=== PATIENT | male | born 1955 | race Caucasian/White ===

== ENCOUNTER 2018-02-06 16:15 | Inpatient (IN) | payer OTHER ==
[2018-02-06 16:43] LABS: Absolute Lymphocytes (CBC) 1.6 K/uL (0.7-4.9); Absolute Monocytes 0.6 K/uL (0.1-1.3); Absolute Neutrophil 6.2 K/uL (1.8-8.0); Basophils % 0.8 % (0-1.3); Eosinophils % 4.9 % (0-4.4); Lymphocytes % 17.9 % (15.3-44.8); MCH 28.3 pg (27.0-35.0); MCV 85.2 fL (80-100); MPV 9.4 fL (7.6-11.3); Monocytes % 6.7 % (3.3-12.3)
[2018-02-06] MEDS ORDERED: HEPARIN 5000 UNIT/ML 1 ML VIAL ONE (16:43)
[2018-02-06] MEDS ORDERED: ASPIRIN 81 MG CHEWABLE TABLET ONE (16:43)
[2018-02-06] MEDS ORDERED: NA CHLORIDE 0.9% 1,000 ML ONE (16:44)
[2018-02-06] MEDS ORDERED: HEPARIN/D5W 25,000 UNIT/500 ML BAG IV ONE (16:44)
[2018-02-06 16:46] LABS: Protime INR 1.03
--- NOTE | 2018-02-06 17:16 | RAD REPORT ---
EXAM DESCRIPTION: Norma Single View02/06/2018 5:06 pm CLINICAL HISTORY: Chest pain COMPARISON: 2011 FINDINGS: The lungs appear clear of acute infiltrate. The heart is normal size IMPRESSION: No acute abnormalities displayed
--- NOTE | 2018-02-06 17:24 | EDPHYS ---
Physician Documentation [facility] Name: Giorgi Al Age: 62 yrs Sex: Male : 1955 Arrival Date: 02/06/2018 Time: 16:[address] Private MD: ED Physician Eduardo Morocho HPI: 02/06 16:33 This 62 yrs old Male presents to ER via Unassigned with complaints of Chest peewee Pain. 16:33 The patient or guardian reports chest pain that is located primarily in the substernal peewee area. Onset: 2 day(s) ago. The pain does not radiate. Associated signs and symptoms: The patient has no apparent associated signs or symptoms. Modifying factors: The symptoms are alleviated by nothing. the symptoms are aggravated by nothing. Severity of pain: At its worst the pain was mild moderate in the emergency department the pain is unchanged. The patient has not experienced similar symptoms in the past. Historical: - Allergies: 16:42 No Known Allergies; ss - PMHx: 16:42 Hypertension; Hypothyroidism; Diabetes - IDDM; Myocardial infarction; ss - PSHx: 16:42 Knee surgery; ss - Immunization history:: Adult Immunizations up to date. - Social history:: Smoking status: Patient/guardian denies using tobacco. - Family history:: not pertinent. - Ebola Screening: : Patient denies exposure to infectious person Patient denies travel to an Ebola-affected area in the 21 days before illness onset. ROS: 16:33 Constitutional: Negative for fever, chills, and weight loss, Eyes: Negative for injury, peewee pain, redness, and discharge, ENT: Negative for injury, pain, and discharge, Neck: Negative for injury, pain, and swelling, Respiratory: Negative for shortness of breath, cough, wheezing, and pleuritic chest pain, Abdomen/GI: Negative for abdominal pain, nausea, vomiting, diarrhea, and constipation, Back: Negative for injury and pain, : Negative for injury, bleeding, discharge, and swelling, MS/Extremity: Negative for injury and deformity, Skin: Negative for injury, rash, and discoloration, Neuro: Negative for headache, weakness, numbness, tingling, and seizure, Psych: Negative for depression, anxiety, suicide ideation, homicidal ideation, and hallucinations, Allergy/Immunology: Negative for hives, rash, and allergies, Endocrine: Negative for neck swelling, polydipsia, polyuria, polyphagia, and marked weight changes, Hematologic/Lymphatic: Negative for swollen nodes, abnormal bleeding, and unusual bruising. 16:33 Cardiovascular: Positive for chest pain, of the chest. Exam: 16:33 Constitutional: This is a well developed, well nourished patient who is awake, alert, peewee and in no acute distress. Head/Face: Normocephalic, atraumatic. Eyes: Pupils equal round and reactive to light, extra-ocular motions intact. Lids and lashes normal. Conjunctiva and sclera are non-icteric and not injected. Cornea within normal limits. Periorbital areas with no swelling, redness, or edema. ENT: Nares patent. No nasal discharge, no septal abnormalities noted. Tympanic membranes are normal and external auditory canals are clear. Oropharynx with no redness, swelling, or masses, exudates, or evidence of obstruction, uvula midline. Mucous membranes moist. Neck: Trachea midline, no thyromegaly or masses palpated, and no cervical lymphadenopathy. Supple, full range of motion without nuchal rigidity, or vertebral point tenderness. No Meningismus. Chest/axilla: Normal chest wall appearance and motion. Nontender with no deformity. No lesions are appreciated. Cardiovascular: Regular rate and rhythm with a normal S1 and S2. No gallops, murmurs, or rubs. Normal PMI, no JVD. No pulse deficits. Respiratory: Lungs have equal breath sounds bilaterally, clear to auscultation and percussion. No rales, rhonchi or wheezes noted. No increased work of breathing, no retractions or nasal flaring. Abdomen/GI: Soft, non-tender, with normal bowel sounds. No distension or tympany. No guarding or rebound. No evidence of tenderness throughout. Back: No spinal tenderness. No costovertebral tenderness. Full range of motion. Male : Normal genitalia with no discharge or lesions. Skin: Warm, dry with normal turgor. Normal color with no rashes, no lesions, and no evidence of cellulitis. MS/ Extremity: Pulses equal, no cyanosis. Neurovascular intact. Full, normal range of motion. Neuro: Awake and alert, GCS 15, oriented to person, place, time, and situation. Cranial nerves II-XII grossly intact. Motor strength 5/5 in all extremities. Sensory grossly intact. Cerebellar exam normal. Normal gait. Psych: Awake, alert, with orientation to person, place and time. Behavior, mood, and affect are within normal limits. Vital Signs: 16:31 Weight 120.2 kg (R); tw2 16:31 BP 178 / 101; Pulse 122; Resp 24; Pulse Ox 99% on R/A; tw2 16:42 Pulse 114; Resp 18; Height 6 ft. 1 in. (185.42 cm); Pain 0/10; ss 17:30 BP 178 / 84; Pulse 84; Resp 17; Pulse Ox 98% on R/A; tw2 18:24 BP 160 / 83; Pulse 92; Resp 18; Pulse Ox 98% on R/A; tw2 19:07 BP 155 / 90; Pulse 66; Resp 16; Pulse Ox 98% on R/A; Pain 0/10; aa1 19:46 BP 116 / 52; Pulse 58; Resp 16; Temp 98.3; Pulse Ox 97% on R/A; Pain 0/10; aa1 16:42 Body Mass Index 34.96 (120.20 kg, 185.42 cm) ss MDM: 16:19 Patient medically screened. [facility] 16:34 Data reviewed: vital signs, nurses notes, lab test result(s), EKG, radiologic studies, peewee plain films. 02/06 16:27 Order name: Basic Metabolic Panel; Complete Time: 18:13 [facility] 02/06 16:27 Order name: CBC with Diff; Complete Time: 17:04 [facility] 02/06 16:27 Order name: LFT's; Complete Time: 18:13 [facility] 02/06 16:27 Order name: Magnesium; Complete Time: 18:13 [facility] 02/06 16:27 Order name: NT PRO-BNP; Complete Time: 18:13 [facility] 02/06 16:27 Order name: PT-INR; Complete Time: 17:04 [facility] 02/06 16:27 Order name: Troponin (emerg Dept Use Only); Complete Time: 18:13 [facility] 02/06 16:27 Order name: XRAY Chest (1 view); Complete Time: 17:21 [facility] 02/06 16:27 Order name: Lipase; Complete Time: 18:13 [facility] 02/06 16:36 Order name: TSH; Complete Time: 18:13 [facility] 02/06 18:22 Order name: CT Stone Protocol [facility] 02/06 18:39 Order name: Urine Dipstick--Ancillary (enter results) 02/06 18:53 Order name: Hemoglobin A1c; Complete Time: 19:13 [facility] 02/06 19:07 Order name: T4 Free; Complete Time: 19:13 [facility] 02/06 16:27 Order name: EKG; Complete Time: 16:28 [facility] 02/06 16:27 Order name: Cardiac monitoring; Complete Time: 17:56 [facility] 02/06 17:26 Order name: CONS Physician Consult [facility] 02/06 19:27 Order name: CT; Complete Time: 20:50 [facility] 02/06 19:32 Order name: US; Complete Time: 20:50 [facility] 02/06 16:27 Order name: EKG - Nurse/Tech; Complete Time: 17:56 [facility] 02/06 16:27 Order name: IV Saline Lock; Complete Time: 17:56 [facility] 02/06 16:27 Order name: Labs collected and sent; Complete Time: 17:56 [facility] 02/06 16:27 Order name: O2 Per Protocol; Complete Time: 17:56 [facility] 02/06 16:27 Order name: O2 Sat Monitoring; Complete Time: 17:56 [facility] 02/06 18:16 Order name: IV Saline Lock - Large Bore; Complete Time: 18:20 [facility] Administered Medications: 14:40 Drug: Heparin (CA-Bolus No thrombolytic) - HEParin 60 units/kg {Co-Signature: bp (Berlin Shrestha RN).} Route: IVP; Site: right antecubital; 17:55 Follow up: Response: No adverse reaction tw2 16:42 Drug: Heparin (CA Drip) 12 units/kg/hr - (HEParin 61938 units, D5W 500 ml) tw2 {Co-Signature: bp (Berlin Shrestha RN).} Route: IV; Rate: calculated rate; Site: right antecubital; 19:23 Follow up: IV Status: Infusion continued upon admission aa1 16:50 Drug: NS 0.9% 1000 ml Route: IV; Rate: 100 ml/hr; Site: right antecubital; tw2 19:22 Follow up: IV Status: Infusion continued upon admission aa1 16:52 Drug: Aspirin Chewable Tablet 324 mg Route: PO; tw2 17:55 Follow up: Response: No adverse reaction tw2 18:13 Drug: Lopressor 5 mg Route: IVP; Site: left antecubital; tw2 19:02 Follow up: Response: No adverse reaction tw2 18:15 Drug: Magnesium Sulfate 1 grams Route: IVPB; Infused Over: 1 hrs; Site: left tw2 antecubital; 19:22 Follow up: IV Status: Completed infusion aa1 18:15 Drug: Lopressor (metoprolol TARTRATE) 50 mg Route: PO; tw2 19:03 Follow up: Response: No adverse reaction tw2 19:20 Drug: ProTONIX 40 mg Route: IVP; Site: left antecubital; aa1 19:48 Follow up: Response: No adverse reaction aa1 19:21 Drug: Lopressor 2.5 mg Route: IVP; Site: left antecubital; aa1 19:48 Follow up: Response: No adverse reaction aa1 19:22 Drug: PlaVIX 600 mg Route: PO; aa1 19:49 Follow up: Response: No adverse reaction aa1 19:46 Not Given (pulse 58): Lopressor 2.5 mg IVP once; Hold for SBP <100 or HR <60. aa1 Disposition: 18 17:23 Hospitalization ordered by Rafita Rojas for Inpatient Admission. Preliminary diagnosis are Chest pain, unspecified, Ventricular tachycardia, Type 1 diabetes mellitus, Obesity, unspecified, Unspecified kidney failure, Non-ST elevation (NSTEMI) myocardial infarction. - Bed requested for Intensive Care Unit. - Status is Inpatient Admission. aa1 - Condition is Fair. - Problem is new. - Symptoms have improved. UTI on Admission? No Signatures: Dispatcher [employer] EDMS Kinsey Cerda Alissa, RN RN aa1 Eduardo Morocho MD MD cha Smirch, Shelby RN RN Toño Gomes, NEHA [employer] TAILOR pm1 Mckenzie Gonzalez RN RN tw2 [place] Shrestha RN bp Corrections: (The following items were deleted from the chart) 18:17 17:23 Hospitalization Ordered by Rafita Rojas DO for Inpatient Admission. Preliminary peewee diagnosis is Chest pain, unspecified; Ventricular tachycardia; Type 1 diabetes mellitus; Obesity, unspecified. Bed requested for Intensive Care Unit. Status is Inpatient Admission. Condition is Fair. Problem is new. Symptoms have improved. UTI on Admission? No. peewee 18:18 18:17 02/06/2018 17:23 Hospitalization Ordered by Rafita Rojas DO for Inpatient peewee Admission. Preliminary diagnosis is Chest pain, unspecified; Ventricular tachycardia; Type 1 diabetes mellitus; Obesity, unspecified; Unspecified kidney failure. Bed requested for Intensive Care Unit. Status is Inpatient Admission. Condition is Fair. Problem is new. Symptoms have improved. UTI on Admission? No. [facility] 18:42 18:18 02/06/2018 17:23 Hospitalization Ordered by Rafita Rojas DO for Inpatient bd Admission. Preliminary diagnosis is Chest pain, unspecified; Ventricular tachycardia; Type 1 diabetes mellitus; Obesity, unspecified; Unspecified kidney failure; Non-ST elevation (NSTEMI) myocardial infarction. Bed requested for Intensive Care Unit. Status is Inpatient Admission. Condition is Fair. Problem is new. Symptoms have improved. UTI on Admission? No. [facility] 19:55 18:42 02/06/2018 17:23 Hospitalization Ordered by Rafita Rojas DO for Inpatient aa1 Admission. Preliminary diagnosis is Chest pain, unspecified; Ventricular tachycardia; Type 1 diabetes mellitus; Obesity, unspecified; Unspecified kidney failure; Non-ST elevation (NSTEMI) myocardial infarction. Bed requested for Intensive Care Unit. Status is Inpatient Admission. Condition is Fair. Problem is new. Symptoms have improved. UTI on Admission? No. bd
--- NOTE | 2018-02-06 17:24 | ER ---
Nurse's Notes [facility] Name: Giorgi Al Age: 62 yrs Sex: Male : 1955 Arrival Date: 02/06/2018 Time: 16:[address] Private MD: Diagnosis: Chest pain, unspecified;Ventricular tachycardia;Type 1 diabetes mellitus;Obesity, unspecified;Unspecified kidney failure;Non-ST elevation (NSTEMI) myocardial infarction Presentation: 02/06 16:19 Presenting complaint: Patient states: sent by Dr. Recinos for abnormal EKG. Pt reports ss that he has been having intermittent chest discomfort x 3-4 days. Transition of care: patient was not received from another setting of care. Onset of symptoms is unknown. Risk Assessment: Do you want to hurt yourself or someone else? Patient reports no desire to harm self or others. Initial Sepsis Screen: Does the patient meet any 2 criteria? HR > 90 bpm. Does the patient have a suspected source of infection? No. Patient's initial sepsis screen is negative. Care prior to arrival: EKG obtained by Dr. Recinos. 16:19 Method Of Arrival: Wheelchair ss 16:19 Acuity: QUINTIN 1 ss Historical: - Allergies: 16:42 No Known Allergies; ss - PMHx: 16:42 Hypertension; Hypothyroidism; Diabetes - IDDM; Myocardial infarction; ss - PSHx: 16:42 Knee surgery; ss - Immunization history:: Adult Immunizations up to date. - Social history:: Smoking status: Patient/guardian denies using tobacco. - Family history:: not pertinent. - Ebola Screening: : Patient denies exposure to infectious person Patient denies travel to an Ebola-affected area in the 21 days before illness onset. Screenin:26 Abuse screen: Denies threats or abuse. Nutritional screening: No deficits noted. tw2 Tuberculosis screening: No symptoms or risk factors identified. Fall Risk None identified. Assessment: 16:57 General: Appears in no apparent distress. Behavior is calm, cooperative, appropriate tw2 for age. Pain: Denies pain. Pain does not radiate. Pain began told by dr to come here. 16:58 Neuro: Level of Consciousness is awake, alert, obeys commands, Oriented to person, tw2 place, time, situation. Cardiovascular: Denies chest pain, shortness of breath, Heart tones S1 S2 Capillary refill < 3 seconds Patient's skin is warm and dry. Respiratory: Airway is patent Respiratory effort is even, unlabored, Respiratory pattern is regular, symmetrical, Breath sounds are clear bilaterally. Denies shortness of breath. GI: No signs and/or symptoms were reported involving the gastrointestinal system. Abdomen is round non-distended, Bowel sounds present X 4 quads. : No signs and/or symptoms were reported regarding the genitourinary system. EENT: No signs and/or symptoms were reported regarding the EENT system. Derm: No signs and/or symptoms reported regarding the dermatologic system. Musculoskeletal: Range of motion: intact in all extremities. 18:28 Reassessment: Patient appears in no apparent distress at this time. No changes from tw2 previously documented assessment. Patient and/or family updated on plan of care and expected duration. Pain level reassessed. Patient is alert, oriented x 3, equal unlabored respirations, skin warm/dry/pink. 19:07 Reassessment: Patient appears in no apparent distress at this time. Patient and/or aa1 family updated on plan of care and expected duration. Pain level reassessed. Patient is alert, oriented x 3, equal unlabored respirations, skin warm/dry/pink. Pt back from CT. Awaiting admission to ICU. at bedside Patient denies pain at this time. Patient states feeling better. Vital Signs: 16:31 Weight 120.2 kg (R); tw2 16:31 BP 178 / 101; Pulse 122; Resp 24; Pulse Ox 99% on R/A; tw2 16:42 Pulse 114; Resp 18; Height 6 ft. 1 in. (185.42 cm); Pain 0/10; ss 17:30 BP 178 / 84; Pulse 84; Resp 17; Pulse Ox 98% on R/A; tw2 18:24 BP 160 / 83; Pulse 92; Resp 18; Pulse Ox 98% on R/A; tw2 19:07 BP 155 / 90; Pulse 66; Resp 16; Pulse Ox 98% on R/A; Pain 0/10; aa1 19:46 BP 116 / 52; Pulse 58; Resp 16; Temp 98.3; Pulse Ox 97% on R/A; Pain 0/10; aa1 16:42 Body Mass Index 34.96 (120.20 kg, 185.42 cm) ED Course: 16:16 Patient arrived in ED. rg4 16:19 Eduardo Morocho MD is Attending Physician. peewee 16:19 Patient maintains SpO2 saturation greater than 95% on room air. tw2 16:19 Bed in low position. Call light in reach. Side rails up X 1. vehicle monitor technician on. Pulse tw2 ox on. NIBP on. 16:30 Mckenzie Gonzalez RN is Primary Nurse. tw2 16:36 EKG done, by support technician. reviewed by Eduardo Morocho MD. sm3 16:41 Triage completed. ss 16:42 Arm band placed on right wrist. ss 17:06 X-ray completed. Portable x-ray completed in exam room. Patient tolerated procedure mh1 well. 17:07 XRAY Chest (1 view) In Process Unspecified. EDMS 17:22 Rafita Rojas DO is Hospitalizing Provider. peewee 18:12 Inserted saline lock: 20 gauge in left antecubital area, using aseptic technique. tw2 18:37 No provider procedures requiring assistance completed. Patient admitted, IV remains in ss place. 18:50 CT completed. Patient tolerated procedure well. Patient taken to ultrasound. jj2 18:58 Report given to ANATOLY Germain, medication ordered from 1815 on have not been given as pt tw2 was in imaging at this time. 19:07 Primary Nurse role handed off by Mckenzie Gonzalez, ANATOLY tw2 19:21 Toño Walters NP is PHCP. pm1 19:21 Jessa Phillips, ANATOLY is Primary Nurse. aa1 Administered Medications: 14:40 Drug: Heparin (GA-Bolus No thrombolytic) - HEParin 60 units/kg {Co-Signature: bp (Berlin Shrestha RN).} Route: IVP; Site: right antecubital; 17:55 Follow up: Response: No adverse reaction tw2 16:42 Drug: Heparin (GA Drip) 12 units/kg/hr - (HEParin 98643 units, D5W 500 ml) tw2 {Co-Signature: bp (Berlin Shrestha RN).} Route: IV; Rate: calculated rate; Site: right antecubital; 19:23 Follow up: IV Status: Infusion continued upon admission aa1 16:50 Drug: NS 0.9% 1000 ml Route: IV; Rate: 100 ml/hr; Site: right antecubital; tw2 19:22 Follow up: IV Status: Infusion continued upon admission aa1 16:52 Drug: Aspirin Chewable Tablet 324 mg Route: PO; tw2 17:55 Follow up: Response: No adverse reaction tw2 18:13 Drug: Lopressor 5 mg Route: IVP; Site: left antecubital; tw2 19:02 Follow up: Response: No adverse reaction tw2 18:15 Drug: Magnesium Sulfate 1 grams Route: IVPB; Infused Over: 1 hrs; Site: left tw2 antecubital; 19:22 Follow up: IV Status: Completed infusion aa1 18:15 Drug: Lopressor (metoprolol TARTRATE) 50 mg Route: PO; tw2 19:03 Follow up: Response: No adverse reaction tw2 19:20 Drug: ProTONIX 40 mg Route: IVP; Site: left antecubital; aa1 19:48 Follow up: Response: No adverse reaction aa1 19:21 Drug: Lopressor 2.5 mg Route: IVP; Site: left antecubital; aa1 19:48 Follow up: Response: No adverse reaction aa1 19:22 Drug: PlaVIX 600 mg Route: PO; aa1 19:49 Follow up: Response: No adverse reaction aa1 19:46 Not Given (pulse 58): Lopressor 2.5 mg IVP once; Hold for SBP <100 or HR <60. aa1 Outcome: 17:23 Decision to Hospitalize by Provider. [facility] 19:54 Admitted to ICU accompanied by nurse, family with patient, via stretcher, room 7, on aa1 monitor, with chart, Other bedside report given 19:54 Condition: stable 19:54 Instructed on the need for admit, Demonstrated understanding of instructions. 19:55 Patient left the ED. aa1 Signatures: Dispatcher [employer] EDMS Jessa Phillips RN RN aa1 Eduardo Morocho MD MD cha Harvey, Martha 1 Markos Pacheco Shelby, RN RN ss Marinas, Patrick, NP PLASTIC BLOCK BOILER RELINER pm1 Mckenzie Gonzalez RN RN tw2 Elise Garcia 4 Ani Acosta 3 [place] Shrestha RN bp
[2018-02-06 17:29] LABS: ALT/SGPT 45 U/L (12-78); AST/SGOT 38 U/L (15-37); Alkaline Phosphatase 65 U/L (45-117); BUN Blood Urea Nitrogen 42 mg/dL (7-18); Bicarbonate 29 mmol/L (21-32); Bilirubin Direct < 0.1 mg/dL (0-0.2); Bilirubin Total 0.3 mg/dL (0.2-1.0); Glucose Level 242 mg/dL (74-106); Lipase 358 U/L (73-393); Magnesium 1.9 mg/dL (1.8-2.4); NT PRO-BNP 404 pg/mL (<125); Potassium 4.8 mmol/L (3.5-5.1); Protein, Total 7.5 g/dL (6.4-8.2); Sodium Level 140 mmol/L (136-145)
[2018-02-06] MEDS ORDERED: NITROGLYCERIN 0.4 MG/TAB SL PRN (17:48)
[2018-02-06] MEDS ORDERED: ONDANSETRON 4 MG/2 ML VIAL IV PRN (17:48)
[2018-02-06] MEDS ORDERED: ACETAMINOPHEN 500 MG TAB PO PRN (17:48)
[2018-02-06 17:57] LABS: Troponin (Emerg Dept Use Only) 3.19 ng/mL (0.0-0.045)
[2018-02-06] MEDS ORDERED: MAGNESIUM SULFATE 1 gm IVPB 1 GM/100 ML BAG IV ONE (18:06)
[2018-02-06] MEDS ORDERED: METOPROLOL TARTRATE 5 MG/5 ML INJ IV ONE ×2 (18:06→19:11)
[2018-02-06] MEDS ORDERED: METOPROLOL TAR 50 MG TAB ONE (18:06)
--- NOTE | 2018-02-06 18:19 | P.HP ---
Certification for Inpatient Patient admitted to: Inpatient With expected LOS: >2 Midnights Patient will require the following post-hospital care: None Practitioner: I am a practitioner with admitting privileges, knowledge of patient current condition, hospital course, and medical plan of care. Services: Services provided to patient in accordance with Admission requirements found in Title 42 Section 412.3 of the Code of Federal Regulations Patient History Date of Service: 02/06/18 Primary Care Provider: None(Lexi); Cardiology-Dr. Recinos Reason for admission: Chest pain, abnormal EKG History of Present Illness: 62-year-old male presented to the ER with chest pain and abnormal EKG. Patient was seen by Cardiology today. Patient was having chest pain to the substernal region. This has been occurring more often. Patient was found to have abnormal EKG with consecutive PVCs. Patient was sent for dimension for heart catheterization. Patient reported some mild shortness of breath. Patient denied any nausea, vomiting or palpitations. Patient with history of diabetes insulin-dependent, hypertension, hyperlipidemia, CAD with previous stent. Patient evaluated in emergency room. Troponin elevated at 3.19. EKG showed consecutive PVCs. White count 8.8, hemoglobin 13.3. BUN of 42, creatinine 2.4 with a GFR of 28. Glucose 242. When I saw the patient in the ER, he appeared stable. No significant chest pain noted. Patient reports somewhat dehydrated. Patient is taking multiple medications including diuretic therapy. Allergies No Known Allergies Allergy (Unverified 04/29/12 07:50) Home medications list reviewed: Yes Home Medications: Amiodarone HCl [Cordarone] 200 mg PO DAILY 04/29/12 Aspirin 81 mg PO DAILY 04/29/12 Lisinopril 20 mg PO DAILY 04/29/12 Metoprolol Tartrate 25 mg PO BID 04/29/12 Pravastatin [Pravachol*] 40 mg PO DAILY 04/29/12 hydroCHLOROthiazide [Hydrodiuril*] 12.5 mg PO DAILY 04/29/12 Glipizide [Glucotrol] 5 mg PO DAILY #30 tablet 04/30/12 Levothyroxine Sodium [Synthroid] 100 mcg PO DAILY #30 tablet 04/30/12 - Past Medical/Surgical History Diabetic: No -: Hypertension -: Diabetes type 2, insulin dependent -: Hypothyroidism -: Hyperlipidemia -: CAD with previous stent -: Heart catheterization with previous stent -: Right knee surgery -: Left knee surgery Psychosocial/ Personal History: Patient is . He has 4 children. He is retired - Family History Father -: Heart disease, Hypertension - Social History Smoking Status: Never smoker Alcohol use: No CD- Drugs: No Caffeine use: Yes Place of Residence: Home Review of Systems General: Weakness, As per HPI Eyes: Unremarkable ENT: Unremarkable Respiratory: Shortness of Breath, As per HPI Cardiovascular: Chest Pain, As per HPI Gastrointestinal: Unremarkable Genitourinary: Unremarkable Musculoskeletal: Unremarkable Integumentary: Unremarkable Physical Examination - Physical Exam General: Alert, In no apparent distress, Oriented x3, Cooperative HEENT: Atraumatic, Normocephalic, PERRLA, Mucous membr. moist/pink Neck: Supple, No Thyromegaly Respiratory: Clear to auscultation bilaterally, Normal air movement Cardiovascular: Normal pulses, Regular rate/rhythm Gastrointestinal: Normal bowel sounds, Soft and benign, Non-distended, No tenderness, No masses, No rebound, No guarding Musculoskeletal: No erythema, No tenderness, No warmth Integumentary: No tenderness/swelling, No erythema, No warmth, No cyanosis Neurological: Normal speech, Normal strength at 5/5 x4 extr, Normal tone, Normal affect - Studies Laboratory Data (last 24 hrs) 02/06/18 16:26: PT 12.1, INR 1.03 02/06/18 16:26: WBC 8.8, Hgb 13.3 L, Hct 40.0, Plt Count 185 02/06/18 16:26: Sodium 140, Potassium 4.8, BUN 42 H, Creatinine 2.40 H, Glucose 242 H, Magnesium 1.9, Total Bilirubin 0.3, AST 38 H, ALT 45, Alkaline Phosphatase 65, Lipase 358 Assessment and Plan - Plan Impression: Chest pain, abnormal EKG with consecutive PVCs now with elevated troponin secondary to Acute Coronary Syndrome Acute renal failure CAD with history of stent Hypertension Diabetes mellitus type 2 Hypothyroidism Hyperlipidemia Plan: Chest pain, abnormal EKG with consecutive PVCs now with elevated troponin secondary to Acute Coronary Syndrome: Patient will be admitted to ICU. Will need to monitor patient closely. Will monitor on telemetry. Will monitor cardiac enzymes. Lovenox 1 milligram/kilogram subcu twice daily started. Will also start aspirin, Lipitor and metoprolol. Cardiology is aware of the patient. Patient will need heart catheterization. Acute renal failure suspect related to medication: This may be medication related. Other possibility is chronic disease related to hypertension, diabetes. Will consult Nephrology to further evaluate. Will check renal ultrasound. CAD with history of stent: Continue as above. Hypertension: Will continue with metoprolol. Will hold TIAGO-inhibitor and diuretic therapy Diabetes mellitus type 2: Will continue insulin sliding scale. Will check A1c. Hypothyroidism: We will need to verify and restart home medication. Will check tsh. Hyperlipidemia: Will start Lipitor 80 mg daily. Will check fasting lipid panel. Discharge Plan: Home Plan to discharge in: Greater than 2 days - Advance Directives Does patient have a Living Will: No Does patient have a Durable POA for Healthcare: Yes - Code Status/Comfort Care Code Status Assessed: Yes (Patient is full code.) Time Spent Managing Pts Care (In Minutes): 55
[2018-02-06] MEDS ORDERED: PANTOPRAZOLE 40 MG INJ ONE (19:11)
[2018-02-06] MEDS ORDERED: CLOPIDOGREL 75 MG TABLET ONE (19:11)
--- NOTE | 2018-02-06 19:26 | RAD REPORT ---
EXAM DESCRIPTION: CT - Stone Protocol - 02/06/2018 6:50 pm CLINICAL HISTORY: Flank pain. PAIN COMPARISON: No comparisons TECHNIQUE: Axial images were obtained without oral or IV contrast. Lack of contrast limits solid org an and vascular assessment. The [id number] spans the entirety of the system partially obscuring uppermost abdomen and lung bases. Coronal reformatted images were obtained and reviewed. All CT scans are performed using dose optimization technique as appropriate and may include automated exposure control or mA/KV adjustment according to patient size. FINDINGS: The lower lung cervantes are clear. Imaged portions of the liver and spleen show no suspicious findings on non-contrast imaging.Cholelith iasis. The pancreas and adrenal glands are normal. No pathologic lymphadenopathy in the abdomen or pe lvis. No urinary tract stones or obstructive uropathy. No bowel obstruction, free air, free fluid or abscess. The appendix is not identified as a discrete s tructure, however, no secondary findings of appendicitis are identified. Moderate lower lumbar degenerative changes. Bilateral fat containing inguinal hernias. IMPRESSION: No urinary tract stones or obstructive uropathy. Cholelithiasis.
--- NOTE | 2018-02-06 19:31 | RAD REPORT ---
EXAM DESCRIPTION: US - Renal Ultrasound-Complete - 02/06/2018 7:04 pm CLINICAL HISTORY: Acute renal failure COMPARISON: RP EXAM COMPLETE dated 04/29/2012; Stone Protocol dated 02/06/2018 FINDINGS: Both kidneys are normal in size, shape and echotexture. The right kidney measures 11.0 x 5.2 x 4.9 cm. No hydronephrosis, focal mass or perinephric fluid. The left kidney measures 11.0 x 5.6 x 5.3 cm. No hydronephrosis, focal mass or perinephric fluid. The urinary bladder is incompletely distended without gross abnormality seen. IMPRESSION: Unremarkable renal sonogram.
[2018-02-06] MEDS ORDERED: ENOXAPARIN 40 MG/0.4 ML SQ SCH (20:00)
[2018-02-06 20:15] LABS: Urine Blood NEGATIVE (NEG); Urine Glucose 2+ (NEG); Urine Protein NEGATIVE (NEG); Urine Specific Gravity 1.015 (1.005-1.030); Urine pH 7.5 (5.0-7.0)
[2018-02-06] MEDS ORDERED: ENOXAPARIN 100 MG/ML SYR SQ SCH (21:00)
[2018-02-06] MEDS: INSULIN -REGULAR HUMAN 50 UNIT/0.5 ML ML SQ SCH (21:00)
--- NOTE | 2018-02-06 22:16 | P.CNS ---
Date of Consult: 02/06/18 Reason for Consult: TA Requesting Physician: Rafita Rojas Primary Care Provider: None(Hyder); Cardiology-Dr. Recinos Chief Complaint: Chest pain, abnormal EKG History of Present Illness: 62-year-old male presented to the ER with chest pain and abnormal EKG. Patient was seen by Cardiology today. Patient was having chest pain to the substernal region. This has been occurring more often. Patient was found to have abnormal EKG with consecutive PVCs. Patient was sent for dimension for heart catheterization. Patient reported some mild shortness of breath. Patient denied any nausea, vomiting or palpitations. Patient with history of diabetes insulin-dependent, hypertension, hyperlipidemia, CAD with previous stent. 16:33 This 62 yrs old Male presents to ER via Unassigned with complaints of Chest peewee Pain. 16:33 The patient or guardian reports chest pain that is located primarily in the substernal peewee area. Onset: 2 day(s) ago. The pain does not radiate. Associated signs and symptoms: The patient has no apparent associated signs or symptoms. Modifying factors: The symptoms are alleviated by nothing. the symptoms are aggravated by nothing. Severity of pain: At its worst the pain was mild moderate in the emergency department the pain is unchanged. The patient has not experienced similar symptoms in the past. Allergies No Known Allergies Allergy (Unverified 04/29/12 07:50) Home medications list reviewed: Yes Home Medications: Amiodarone HCl [Cordarone] 200 mg PO DAILY 04/29/12 Aspirin 81 mg PO DAILY 04/29/12 Lisinopril 20 mg PO DAILY 04/29/12 Metoprolol Tartrate 25 mg PO BID 04/29/12 Pravastatin [Pravachol*] 40 mg PO DAILY 04/29/12 hydroCHLOROthiazide [Hydrodiuril*] 12.5 mg PO DAILY 04/29/12 Glipizide [Glucotrol] 5 mg PO DAILY #30 tablet 04/30/12 Levothyroxine Sodium [Synthroid] 100 mcg PO DAILY #30 tablet 04/30/12 - Past Medical/Surgical History Diabetic: No -: Hypertension -: Diabetes type 2, insulin dependent -: Hypothyroidism -: Hyperlipidemia -: CAD with previous stent -: Heart catheterization with previous stent -: Right knee surgery -: Left knee surgery Psychosocial/ Personal History: Patient is . He has 4 children. He is retired - Family History Father Medical History: Heart disease, Hypertension - Social History Smoking Status: Never smoker Alcohol use: No CD- Drugs: No Caffeine use: Yes Place of Residence: Home Review of Systems 10-point ROS is otherwise unremarkable General: Weakness, Malaise Respiratory: SOB with Excertion Cardiovascular: Chest Pain Neurological: Weakness Physical Examination Temp Pulse Resp BP Pulse Ox 98.3 F 87 21 H 161/95 H 96 02/06/18 19:46 02/06/18 21:00 02/06/18 21:00 02/06/18 21:00 02/06/18 21:00 General: In no apparent distress, Oriented x3, Cooperative HEENT: Mucous membr. moist/pink Neck: Supple Respiratory: Clear to auscultation bilaterally, Normal air movement Cardiovascular: Regular rate/rhythm, Edema Gastrointestinal: Soft and benign, Non-distended Musculoskeletal: No clubbing, No contractures Integumentary: No rashes, No cyanosis Neurological: Normal speech Laboratory Data (last 24 hrs) 02/06/18 16:26: PT 12.1, INR 1.03 02/06/18 16:26: WBC 8.8, Hgb 13.3 L, Hct 40.0, Plt Count 185 02/06/18 16:26: Sodium 140, Potassium 4.8, BUN 42 H, Creatinine 2.40 H, Glucose 242 H, Magnesium 1.9, Total Bilirubin 0.3, AST 38 H, ALT 45, Alkaline Phosphatase 65, Lipase 358 Imagings Data: EXAM DESCRIPTION: US - Renal Ultrasound-Complete - 02/06/2018 7:04 pm CLINICAL HISTORY: Acute renal failure COMPARISON: RP EXAM COMPLETE dated 04/29/2012; Stone Protocol dated 02/06/2018 FINDINGS: Both kidneys are normal in size, shape and echotexture. The right kidney measures 11.0 x 5.2 x 4.9 cm. No hydronephrosis, focal mass or perinephric fluid. The left kidney measures 11.0 x 5.6 x 5.3 cm. No hydronephrosis, focal mass or perinephric fluid. The urinary bladder is incompletely distended without gross abnormality seen. IMPRESSION: Unremarkable renal sonogram. EXAM DESCRIPTION: CT - Stone Protocol - 02/06/2018 6:50 pm CLINICAL HISTORY: Flank pain. PAIN COMPARISON: No comparisons TECHNIQUE: Axial images were obtained without oral or IV contrast. Lack of contrast limits solid organ and vascular assessment. The [id number] spans the entirety of the system partially obscuring uppermost abdomen and lung bases. Coronal reformatted images were obtained and reviewed. All CT scans are performed using dose optimization technique as appropriate and may include automated exposure control or mA/KV adjustment according to patient size. FINDINGS: The lower lung cervantes are clear. Imaged portions of the liver and spleen show no suspicious findings on non- contrast imaging.Cholelithiasis. The pancreas and adrenal glands are normal. No pathologic lymphadenopathy in the abdomen or pelvis. No urinary tract stones or obstructive uropathy. No bowel obstruction, free air, free fluid or abscess. The appendix is not identified as a discrete structure, however, no secondary findings of appendicitis are identified. Moderate lower lumbar degenerative changes. Bilateral fat containing inguinal hernias. IMPRESSION: No urinary tract stones or obstructive uropathy. Cholelithiasis. Conclusions/Impression: A/ TA likely CRS. CKD III. HTN with CKD. Edema. DM II with CKD. A1C 8.5 AMI/ CAD. P/ Continue current POC and Medications. Agree with metoprolol. Follow up with cardiology. Plan for echocardiogram. No NSAIDs. AM labs. Daily weight. Thank you kindly for the consultation.
[2018-02-06] MEDS: ATORVASTATIN 80 MG TAB PO SCH (22:31)
[2018-02-06] MEDS: METOPROLOL TAR 50 MG TAB PO SCH (22:31)
[2018-02-06 23:21] VITALS: BMI 35.6
[2018-02-06 23:34] LABS: CKMB Creatine Kinase MB 9.4 ng/mL (0.3-3.6)
[2018-02-06 23:35] LABS: Troponin I 3.24 ng/mL (0.0-0.045)
[2018-02-07 05:19] LABS: Absolute Lymphocytes (CBC) 1.5 K/uL (0.7-4.9); Absolute Monocytes 0.5 K/uL (0.1-1.3); Absolute Neutrophil 4.2 K/uL (1.8-8.0); Basophils % 0.8 % (0-1.3); Eosinophils % 8.9 % (0-4.4); Hematocrit 37.1 % (39.6-49.0); Lymphocytes % 21.7 % (15.3-44.8); MCH 28.8 pg (27.0-35.0); MCV 84.1 fL (80-100); MPV 9.6 fL (7.6-11.3); Monocytes % 7.2 % (3.3-12.3); RBC Red Blood Cell Count 4.41 M/uL (4.33-5.43)
[2018-02-07 05:44] LABS: Magnesium 1.8 mg/dL (1.8-2.4); Phosphorus 3.8 mg/dL (2.5-4.9); Potassium 4.2 mmol/L (3.5-5.1); Uric Acid 7.4 mg/dL (3.5-7.2)
[2018-02-07 06:09] LABS: Troponin I 2.91 ng/mL (0.0-0.045)
[2018-02-07] MEDS ORDERED: Magnesium Sulfate 2gm IVPB 2 G/50 ML BAG IV ONE (06:36)
--- NOTE | 2018-02-07 06:52 | EKG ---
Test Date: 2018-02-06 Test Time: 16:22:47 Gear Cutting Machine Set Up Operator: BRYAN MEASUREMENT RESULTS: Intervals: Rate: 112 CT: 182 QRSD: 98 QT: 330 QTc: 450 [place]: P: 52 CT: 182 QRS: -5 T: 78 INTERPRETIVE STATEMENTS: Sinus rhythm with frequent and consecutive premature ventricular complexes Nonspecific ST abnormality Abnormal ECG Compared to ECG 04/29/2012 08:23:52 Ventricular premature complex(es) now present ST (T wave) deviation now present Sinus bradycardia no longer present First degree AV block no longer present Electronically Signed On 02-07-18 06:50:34 CDT by Nando Barrios
[2018-02-07] MEDS: INSULIN -REGULAR HUMAN 50 UNIT/0.5 ML ML SQ SCH ×4 (07:30→21:00)
[2018-02-07] MEDS: METOPROLOL TAR 50 MG TAB PO SCH ×2 (08:25→19:47)
[2018-02-07] MEDS: ASPIRIN EC 81 MG TAB PO SCH (08:25)
--- NOTE | 2018-02-07 08:30 | CON ---
Date of Consultation: 02/07/2018 The patient was admitted on 02/06/[address] Rojas' service. The patient was seen on 02/07/2018. Reason For Consultation: Elevated troponin and ventricular tachycardia. History Of Present Illness: Mr. Al is a 62-year-old male, has a history of diabetes, hypertensi on, hypothyroidism, dyslipidemia, history of stent approximately 20 years ago. Does not really know the location of that stent. Apparently has had 2 other catheterizations in [place]. Since then, rony th of those were negative. He came in and saw Dr. Recinos with ventricular tachycardia episode and ch est pain and was admitted to the hospital for further evaluation. When he got to the hospital, tropo elodia showed a value of 3.19. His BNP was 404. Creatinine was 2.4. His glucose was 191. He was symp toms-free, but continued to have short runs of ventricular tachycardia. Magnesium was 1.8. He was b eing supplemented with mag. Past Medical History: As stated above. Allergies: NONE. Review of Systems: Negative. Social History: Negative. Family History: Positive for diabetes and heart disease. Medications: At home include aspirin, Lipitor, glipizide, insulin, thyroid, metoprolol, piroxicam, h ydrochlorothiazide with triamterene and he also takes telmisartan. Physical Examination: Vital Signs: Stable. Normal rhythm with multiple triplets. HEENT: Negative. Neck: Supple with no bruit. Chest: Clear. Cardiac exam: Revealed a regular rhythm and rate. No murmurs, gallops, or rubs. Abdomen: Benign. Extremities: Revealed no clubbing, cyanosis, or edema. Diagnostic Data: As stated earlier. Baseline EKG showed normal sinus rhythm with PVCs. Impression And Plan: 1.Non-ST elevation myocardial infarction. The patient with history of coronary artery disease, stat us post stent when he was 43 years of age. Subsequent catheterization had been negative in [place]. We have no records of that. 2.Renal insufficiency, creatinine of 2.4, stage 3. Nephrology is involved. The patient had been hy drated overnight. Creatinine is 2.0 today. Echocardiogram is pending. 3.Diabetes. 4.Hypertension. 5.Hypothyroidism. 6.Dyslipidemia. Plan to do a heart catheterization on Mr. Al once his creatinine improves. He obviously needs t o be off his nonsteroidal anti-inflammatory agent, off the diuretic, and off his angiotensin-receptor blockers for now. He needs to be gently hydrated. We will plan a catheterization in about 48 hours if his creatinine goes down below 1.5. The case was discussed with Dr. Rojas. JOSEPH/ALEXANDRA Voice ID: [id number] Report ID: [id number]
[2018-02-07 08:51] LABS: Urine Appearance CLEAR; Urine Bilirubin NEGATIVE (NEG); Urine Blood NEGATIVE (NEG); Urine Color YELLOW; Urine Glucose NEGATIVE (NEG); Urine Protein NEGATIVE (NEG); Urine Urobilinogen 0.2 mg/dL (0.2-1.0)
[2018-02-07 08:52] LABS: Urine Microscopic Reflex NO UMIC
[2018-02-07] MEDS ORDERED: INFLUENZA VACCINE (for 3y+) 0.5 ML DOSE IMVAC ONE (09:00)
[2018-02-07] MEDS ORDERED: PNEUMOCOCCAL VACCINE 0.5 ML IMVAC ONE (09:00)
--- NOTE | 2018-02-07 09:14 | P.PN ---
Subjective Date of Service: 02/07/18 Primary Care Provider: None(Lexi); Cardiology-Dr. Recinos Chief Complaint: Chest pain, abnormal EKG Subjective: Improving (Patient improved. No chest pain noted.) Physical Examination - Vital Signs Temperature: 97.2 F Blood Pressure: 147/90 Pulse: 80 Respirations: 17 Pulse Ox (%): 99 - Physical Exam General: Alert, In no apparent distress, Oriented x3, Cooperative HEENT: Atraumatic Neck: Supple Respiratory: Clear to auscultation bilaterally, Normal air movement Cardiovascular: Normal pulses, Regular rate/rhythm Gastrointestinal: Normal bowel sounds, Soft and benign, Non-distended Musculoskeletal: No erythema, No tenderness, No warmth Integumentary: No tenderness/swelling, No erythema, No warmth, No cyanosis Neurological: Normal speech, Normal strength at 5/5 x4 extr, Normal tone, Normal affect - Studies Laboratory Data (last 24 hrs) 02/06/18 16:26: PT 12.1, INR 1.03 02/06/18 16:26: WBC 8.8, Hgb 13.3 L, Hct 40.0, Plt Count 185 02/06/18 16:26: Sodium 140, Potassium 4.8, BUN 42 H, Creatinine 2.40 H, Glucose 242 H, Magnesium 1.9, Total Bilirubin 0.3, AST 38 H, ALT 45, Alkaline Phosphatase 65, Lipase 358 Medications List Reviewed: Yes Assessment & Plan Discharge Plan: Home Plan to discharge in: Greater than 2 days Physician Review Additional Text: Impression: Chest pain with abnormal EKG showing consecutive PVCs now with elevated troponin secondary to Acute Coronary Syndrome Acute renal failure likely related to medication-diuretic/Arb inhibitor CAD with history of stent Hypertension Diabetes mellitus type 2, on controlled Hypothyroidism Hyperlipidemia Obesity, BMI 35.6 Suspect obstructive sleep apnea Plan: Chest pain with abnormal EKG showing consecutive PVCs now with elevated troponin secondary to Acute Coronary Syndrome: Patient remains in ICU. Will continue to monitor on telemetry. Patient still having consecutive PVCs. Patient currently on heparin drip. Patient on aspirin, Lipitor and metoprolol. Patient will likely require heart catheterization but this is currently on hold due to acute renal failure. Renal function improved. Will discuss further with cardiology. Acute renal failure suspect related to medication-diuretic/Arb inhibitor: This may be medication related-Dyazide and Telmisartan. Will continue to hold medication. Renal ultrasound shows no chronic renal disease. Renal function slightly compromise in the distant past. Case discussed with nephrology. May need to add IV fluids if no signs of congestive heart failure on ECHO. CAD with history of stent: Continue as above. Hypertension: Will continue with metoprolol. Will hold Arb inhibitor and diuretic therapy Diabetes mellitus type 2 on controlled, A1c 8.5: Will continue insulin sliding scale. Will restart basal insulin. Hypothyroidism: Will continue with his medication Levoxyl 100 mcg daily Hyperlipidemia: Will continue with Lipitor 80 mg daily. LDL 90 Obesity: BMI 35.6, Lifestyle modification education will be provided. Patient likely has underlying obstructive sleep apnea: This can be further addressed as an outpatient. Time Spent Managing Pts Care (In Minutes): 55
[2018-02-07] MEDS ORDERED: D50W 25 GM/50 ML SYRINGE IV PRN (09:21)
[2018-02-07] MEDS ORDERED: GLUCAGON 1 MG/VIAL IM PRN (09:21)
[2018-02-07 10:44] LABS: Urine Appearance CLEAR; Urine Bilirubin NEGATIVE (NEG); Urine Blood NEGATIVE (NEG); Urine Color YELLOW; Urine Glucose NEGATIVE (NEG); Urine Protein NEGATIVE (NEG); Urine Urobilinogen 0.2 mg/dL (0.2-1.0)
--- NOTE | 2018-02-07 10:45 | EKG ---
Test Date: 2018-02-07 Test Time: 07:33:36 [employer] Agent: DONALD MEASUREMENT RESULTS: Intervals: Rate: 84 PA: 200 QRSD: 100 QT: 370 QTc: 437 [place]: P: 60 PA: 200 QRS: 27 T: 73 INTERPRETIVE STATEMENTS: Sinus rhythm with frequent and consecutive premature ventricular complexes Abnormal ECG Compared to ECG 02/06/2018 16:22:47 ST (T wave) deviation no longer present Electronically Signed On 02-07-18 10:44:59 CDT by Willian Recinos
--- NOTE | 2018-02-07 10:50 | ECHO ---
HEIGHT: 6 ft 1 in WEIGHT: 270 lb 0 oz DATE OF STUDY: 02/07/[address]: Rafita Rojas DO 2-DIMENSIONAL: YES M.MODE: YES DOPPLER: YES COLOR FLOW: YES TDS: NO PORTABLE: YES DEFINITY: NO BUBBLE STUDY: NO DIAGNOSIS: ACUTE CORONARY SYNDROME CARDIAC HISTORY: CATHERIZATION: SURGERY: PROSTHETIC VALVE: PACEMAKER: MEASUREMENTS (cm) DIASTOLIC (NORMALS) SYSTOLIC (NORMALS) IVSd 1.2 (0.6-1.2) LA Diam 3.6 (1.9-4.0) LVEF 59% LVIDd 4.9 (3.5-5.7) LVIDs 3.4 (2.0-3.5) %FS 31% LVPWd 1.3 (0.6-1.2) Ao Diam 2.6 (2.0-3.7) 2 DIMENSIONAL ASSESSMENT: RIGHT ATRIUM: NORMAL LEFT ATRIUM: NORMAL RIGHT VENTRICLE: NORMAL LEFT VENTRICLE: LEFT VENTRICULAR HYPERTROPHY TRICUSPID VALVE: NORMAL MITRAL VALVE: NORMAL PULMONIC VALVE: NORMAL AORTIC VALVE: NORMAL PERICARDIAL EFFUSION: NONE AORTIC ROOT: NORMAL LEFT VENTRICULAR WALL MOTION: DOPPLER/COLOR FLOW: MILD MITRAL AND TRICUSPID REGURGITATION. NORMAL RIGHT VENTRICULAR SYSTOLIC PRESSURE. COMMENTS: NORMAL LEFT VENTRICULAR EJECTION FRACTION. LEFT VENTRICULAR HYPERTROPHY. MILD MITRAL AND TRICUSPID REGURGITATION. TECHNOLOGIST: Carmen LOCKHART
[2018-02-07 11:07] LABS: UR MICROALBUMIN 0.7 mg/dL (< 1.9)
[2018-02-07 11:18] LABS: Urine Bacteria <20 /HPF (NONE SEEN); Urine Culture Reflex Order NOT NEEDED; Urine RBC <5 /HPF (NONE SEEN)
--- NOTE | 2018-02-07 15:27 | PN ---
Mr. Al has a creatinine of 2.0. I think we do not give him any meloxicam or other nonsteroidal anti-inflammatory drugs, hydrate him. If we get his creatinine close to 1.5, we could do a cardiac c ath. At this point, I told him it would probably be this coming Monday, the day after tomorrow. He seems to understand. He is comfortable and understands how serious the heart condition is and waitin g is appropriate. LINDA Voice ID: [id number] Report ID: [id number]
[2018-02-07] MEDS: HEPARIN/D5W 25,000 UNIT/500 ML BAG IV SCH (16:38)
[2018-02-07] MEDS: NACHLORIDE 0.45% 1,000 ML IV SCH (18:46)
[2018-02-07] MEDS: ATORVASTATIN 80 MG TAB PO SCH (19:47)
--- NOTE | 2018-02-07 20:01 | P.PN ---
Date of Service: 02/07/18 Vital Signs Temp Pulse Resp BP Pulse Ox 98.4 F 78 17 161/92 H 97 02/07/18 16:00 02/07/18 19:47 02/07/18 18:00 02/07/18 19:47 02/07/18 16:00 Medications Acetaminophen (Tylenol -Extra Strength) 500 mg PO Q4HP PRN PRN Reason: [id number] Stop: 03/08/18 17:49 Aspirin (Aspirin Ec) 81 mg PO DAILY [facility] Stop: 03/09/18 09:01 Last Admin: 02/07/18 08:25 Dose: 81 mg Atorvastatin Calcium (Lipitor) 80 mg PO BEDTIME [facility] Stop: 03/08/18 21:01 Last Admin: 02/07/18 19:47 Dose: 80 mg Dextrose (Dextrose 50% Syringe) 12.5 gm IV PRN PRN; Protocol PRN Reason: HYPOGLYCEMIA Stop: 03/09/18 09:22 Glucagon (Glucagen) 1 mg IM 1X PRN; Protocol PRN Reason: HYPOGLYCEMIA Stop: 03/09/18 09:22 Heparin Sodium (Porcine) (Heparin 1,000 Units/Ml) 0 unit IV PRN PRN PRN Reason: Heparin Re-Bolus Per Protocol Stop: 03/08/18 18:34 Last Admin: 02/07/18 06:29 Dose: 3,000 unit Heparin Sodium/Dextrose (Heparin Drip 25,000 Units/5oo Ml Premix) 25,000 unit in 500 mls @ 20 mls/hr IV UD [facility]; Protocol Stop: 03/08/18 19:01 Last Admin: 02/07/18 16:38 Dose: 500 mls Sodium Chloride (Sodium Chloride 0.45%) 1,000 mls @ 75 mls/hr IV .[id number] [facility] Stop: 03/09/18 18:01 Last Admin: 02/07/18 18:46 Dose: 1,000 mls Insulin Glargine (Lantus) 20 units SQ DAILY WITH BREAKFAST [facility] Stop: 03/10/18 08:01 Insulin Human Regular (Novolin -R) 0 unit SQ ACHS [facility]; Protocol Stop: 03/08/18 21:01 Last Admin: 02/07/18 16:30 Dose: Not Given Levothyroxine Sodium (Synthroid) 0.1 mg PO DAILYAC [facility] Stop: 03/10/18 06:31 Metoprolol Tartrate (Lopressor) 100 mg PO BID [facility] Stop: 03/09/18 21:01 Last Admin: 02/07/18 19:47 Dose: 100 mg Nitroglycerin (Nitrostat) 0.4 mg SL UD PRN PRN Reason: CHEST PAIN Stop: 03/08/18 17:49 Ondansetron HCl (Zofran) 4 mg IV Q6HP PRN PRN Reason: NAUSEA / VOMITING Stop: 03/08/18 17:49 Sodium Chloride (Normal Saline Flush) 10 ml IV BID [facility] Stop: 03/08/18 21:01 Last Admin: 02/07/18 19:48 Dose: 10 ml Assessment/ Plan: Nephrology. Feeling better. CPS stable without CP or SOB. No acute events overnight. Vitals, medications, blood work and imaging reviewed in the chart. General: In no apparent distress, Oriented x3, Cooperative HEENT: Mucous membr. moist/pink Neck: Supple Respiratory: Clear to auscultation bilaterally, Normal air movement Cardiovascular: Regular rate/rhythm, No Edema Gastrointestinal: Soft and benign, Non-distended Musculoskeletal: No clubbing, No contractures Integumentary: No rashes, No cyanosis Neurological: Normal speech Laboratory Data (last 24 hrs) 02/06/18 16:26: PT 12.1, INR 1.03 02/06/18 16:26: WBC 8.8, Hgb 13.3 L, Hct 40.0, Plt Count 185 02/06/18 16:26: Sodium 140, Potassium 4.8, BUN 42 H, Creatinine 2.40 H, Glucose 242 H, Magnesium 1.9, Total Bilirubin 0.3, AST 38 H, ALT 45, Alkaline Phosphatase 65, Lipase 358 Imagings Data: EXAM DESCRIPTION: US - Renal Ultrasound-Complete - 02/06/2018 7:04 pm CLINICAL HISTORY: Acute renal failure COMPARISON: RP EXAM COMPLETE dated 04/29/2012; Stone Protocol dated 02/06/2018 FINDINGS: Both kidneys are normal in size, shape and echotexture. The right kidney measures 11.0 x 5.2 x 4.9 cm. No hydronephrosis, focal mass or perinephric fluid. The left kidney measures 11.0 x 5.6 x 5.3 cm. No hydronephrosis, focal mass or perinephric fluid. The urinary bladder is incompletely distended without gross abnormality seen. IMPRESSION: Unremarkable renal sonogram. EXAM DESCRIPTION: CT - Stone Protocol - 02/06/2018 6:50 pm CLINICAL HISTORY: Flank pain. PAIN COMPARISON: No comparisons TECHNIQUE: Axial images were obtained without oral or IV contrast. Lack of contrast limits solid organ and vascular assessment. The [id number] spans the entirety of the system partially obscuring uppermost abdomen and lung bases. Coronal reformatted images were obtained and reviewed. All CT scans are performed using dose optimization technique as appropriate and may include automated exposure control or mA/KV adjustment according to patient size. FINDINGS: The lower lung cervantes are clear. Imaged portions of the liver and spleen show no suspicious findings on non- contrast imaging.Cholelithiasis. The pancreas and adrenal glands are normal. No pathologic lymphadenopathy in the abdomen or pelvis. No urinary tract stones or obstructive uropathy. No bowel obstruction, free air, free fluid or abscess. The appendix is not identified as a discrete structure, however, no secondary findings of appendicitis are identified. Moderate lower lumbar degenerative changes. Bilateral fat containing inguinal hernias. IMPRESSION: No urinary tract stones or obstructive uropathy. Cholelithiasis. Conclusions/Impression: A/ TA likely CRS. CKD III. HTN with CKD. Edema. DM II with CKD. A1C 8.5 AMI/ CAD. P/ Continue current POC and Medications. Gentle IVF. Follow up with cardiology. Plan for echocardiogram. No NSAIDs. AM labs. Daily weight.
[2018-02-08 05:57] LABS: Potassium 4.1 mmol/L (3.5-5.1)
[2018-02-08 06:05] LABS: Absolute Lymphocytes (CBC) 1.3 K/uL (0.7-4.9); Absolute Monocytes 0.5 K/uL (0.1-1.3); Absolute Neutrophil 4.8 K/uL (1.8-8.0); Basophils % 0.9 % (0-1.3); Eosinophils % 7.9 % (0-4.4); Hematocrit 40.3 % (39.6-49.0); Lymphocytes % 18.3 % (15.3-44.8); MCH 28.3 pg (27.0-35.0); MPV 9.7 fL (7.6-11.3); Monocytes % 6.7 % (3.3-12.3); RBC Red Blood Cell Count 4.74 M/uL (4.33-5.43)
[2018-02-08] MEDS: LEVOTHYROXINE SOD 0.1 MG TAB PO SCH (06:32)
[2018-02-08] MEDS: NACHLORIDE 0.45% 1,000 ML IV SCH ×3 (06:33→18:09)
[2018-02-08] MEDS: INSULIN -REGULAR HUMAN 50 UNIT/0.5 ML ML SQ SCH ×4 (07:30→21:00)
[2018-02-08] MEDS ORDERED: HEPARIN 5000 UNIT/ML 1 ML VIAL IV SCH (08:00)
[2018-02-08] MEDS: METOPROLOL TAR 50 MG TAB PO SCH ×2 (08:29→20:59)
[2018-02-08] MEDS: ASPIRIN EC 81 MG TAB PO SCH (08:29)
[2018-02-08] MEDS: INSULIN GLARGINE 100 UNITS/ML SQ SCH (08:29)
--- NOTE | 2018-02-08 09:01 | P.PN ---
Subjective Date of Service: 02/08/18 Primary Care Provider: None(Lexi); Cardiology-Dr. Recinos Chief Complaint: Chest pain, abnormal EKG Subjective: Improving (Patient without any significant chest pain.) Physical Examination - Vital Signs Temperature: 97.4 F Blood Pressure: 133/84 Pulse: 71 Respirations: 22 Pulse Ox (%): 97 - Physical Exam General: Alert, In no apparent distress, Oriented x3, Cooperative HEENT: Atraumatic Neck: Supple Respiratory: Clear to auscultation bilaterally, Normal air movement Cardiovascular: Normal pulses, Regular rate/rhythm Gastrointestinal: Normal bowel sounds, Soft and benign, Non-distended, No tenderness, No masses, No rebound, No guarding Musculoskeletal: No erythema, No tenderness, No warmth Integumentary: No tenderness/swelling, No erythema, No warmth, No cyanosis Neurological: Normal speech, Normal strength at 5/5 x4 extr, Normal tone, Normal affect - Studies Medications List Reviewed: Yes Assessment & Plan Discharge Plan: Home Plan to discharge in: 48 Hours Physician Review Additional Text: Impression: Chest pain with abnormal EKG showing consecutive PVCs now with elevated troponin secondary to Acute Coronary Syndrome Acute renal failure likely related to medication-diuretic/Arb inhibitor CAD with history of stent Hypertension Diabetes mellitus type 2, on controlled Hypothyroidism Hyperlipidemia Obesity, BMI 35.6 Suspect obstructive sleep apnea Plan: Chest pain with abnormal EKG showing consecutive PVCs now with elevated troponin secondary to Acute Coronary Syndrome: Patient much improved. Case discussed with cardiology. Patient may be able to get heart catheterization if creatinine is less than 1.5. Ejection fraction within normal range. Cardiology to discuss case further with electrophysiology for possible ablation in the future. Will provide IV fluids to help renal function. Will continue with current medications. Recheck creatinine tomorrow. Acute renal failure suspect related to medication-diuretic/Arb inhibitor: This may be medication related-Dyazide and Telmisartan. Will continue to hold medication. Renal ultrasound shows no chronic renal disease. Renal function improved. Will increase IV fluids. Once creatinine less than 1.5 then patient may be able to get heart catheterization. This can occur as early as tomorrow. Otherwise patient may have this done as an outpatient. CAD with history of stent: Continue as above. Hypertension: Will continue with metoprolol. Will hold Arb inhibitor and diuretic therapy Diabetes mellitus type 2 on controlled, A1c 8.5: Will continue insulin sliding scale. Will restart basal insulin. Hypothyroidism: Will continue with his medication Levoxyl 100 mcg daily Hyperlipidemia: Will continue with Lipitor 80 mg daily. LDL 90 Obesity: BMI 35.6, Lifestyle modification education will be provided. Patient likely has underlying obstructive sleep apnea: This can be further addressed as an outpatient. Time Spent Managing Pts Care (In Minutes): 55
--- NOTE | 2018-02-08 13:07 | PN ---
Subjective: The patient was admitted with nonsustained ventricular tachycardia episodes, chest pain, elevated troponin, renal insufficiency with a creatinine of 2.4. He has improved. He has not had a [place] symptoms of chest pain, shortness of breath. He is still have occasional short runs of VT. He is on heparin. He is on beta-blockers. Magnesium has been supplemented. Potassium and magnesium have normalized. His creatinine today is 1.8. It has come down from 2.4. He is still not ready for a c atheterization. In my opinion we need to continue gentle hydration as the echocardiogram was unremar kable. We will see how he does over the next day or 2 before making final decisions regarding a hear t catheterization. I would like to have his creatinine as 1.5 or less. I will discuss the case with Dr. Rojas. JOSEPH/ALEXANDRA Voice ID: [id number] Report ID: [id number]
[2018-02-08] MEDS: HEPARIN/D5W 25,000 UNIT/500 ML BAG IV SCH (16:54)
[2018-02-08] MEDS: ATORVASTATIN 80 MG TAB PO SCH (20:58)
--- NOTE | 2018-02-08 21:44 | P.PN ---
Date of Service: 02/08/18 Vital Signs Temp Pulse Resp BP Pulse Ox 98.0 F 61 20 132/73 95 02/08/18 20:00 02/08/18 20:59 02/08/18 20:00 02/08/18 20:59 02/08/18 20:00 Medications Acetaminophen (Tylenol -Extra Strength) 500 mg PO Q4HP PRN PRN Reason: [id number] Stop: 03/08/18 17:49 Aspirin (Aspirin Ec) 81 mg PO DAILY [facility] Stop: 03/09/18 09:01 Last Admin: 02/08/18 08:29 Dose: 81 mg Atorvastatin Calcium (Lipitor) 80 mg PO BEDTIME [facility] Stop: 03/08/18 21:01 Last Admin: 02/08/18 20:58 Dose: 80 mg Dextrose (Dextrose 50% Syringe) 12.5 gm IV PRN PRN; Protocol PRN Reason: HYPOGLYCEMIA Stop: 03/09/18 09:22 Glucagon (Glucagen) 1 mg IM 1X PRN; Protocol PRN Reason: HYPOGLYCEMIA Stop: 03/09/18 09:22 Heparin Sodium (Porcine) (Heparin 1,000 Units/Ml) 0 unit IV PRN PRN PRN Reason: Heparin Re-Bolus Per Protocol Stop: 03/08/18 18:34 Last Admin: 02/07/18 06:29 Dose: 3,000 unit Heparin Sodium/Dextrose (Heparin Drip 25,000 Units/5oo Ml Premix) 25,000 unit in 500 mls @ 20 mls/hr IV UD [facility]; Protocol Stop: 03/08/18 19:01 Last Admin: 02/08/18 16:54 Dose: 500 mls Sodium Chloride (Sodium Chloride 0.45%) 1,000 mls @ 100 mls/hr IV .Q10H [facility] Stop: 03/10/18 07:01 Last Admin: 02/08/18 18:09 Dose: 1,000 mls Insulin Glargine (Lantus) 20 units SQ DAILY WITH BREAKFAST [facility] Stop: 03/10/18 08:01 Last Admin: 02/08/18 08:29 Dose: 20 units Insulin Human Regular (Novolin -R) 0 unit SQ ACHS [facility]; Protocol Stop: 03/08/18 21:01 Last Admin: 02/08/18 16:30 Dose: Not Given Levothyroxine Sodium (Synthroid) 0.1 mg PO DAILYAC [facility] Stop: 03/10/18 06:31 Last Admin: 02/08/18 06:32 Dose: 0.1 mg Metoprolol Tartrate (Lopressor) 100 mg PO BID [facility] Stop: 03/09/18 21:01 Last Admin: 02/08/18 20:59 Dose: 100 mg Nitroglycerin (Nitrostat) 0.4 mg SL UD PRN PRN Reason: CHEST PAIN Stop: 03/08/18 17:49 Ondansetron HCl (Zofran) 4 mg IV Q6HP PRN PRN Reason: NAUSEA / VOMITING Stop: 03/08/18 17:49 Sodium Chloride (Normal Saline Flush) 10 ml IV BID [facility] Stop: 03/08/18 21:01 Last Admin: 02/08/18 21:00 Dose: 10 ml Assessment/ Plan: Nephrology. Feeling better. CPS stable without CP or SOB. No acute events overnight. Vitals, medications, blood work and imaging reviewed in the chart. General: In no apparent distress, Oriented x3, Cooperative HEENT: Mucous membr. moist/pink Neck: Supple Respiratory: Clear to auscultation bilaterally, Normal air movement Cardiovascular: Regular rate/rhythm, No Edema Gastrointestinal: Soft and benign, Non-distended Musculoskeletal: No clubbing, No contractures Integumentary: No rashes, No cyanosis Neurological: Normal speech Laboratory Data (last 24 hrs) 02/06/18 16:26: PT 12.1, INR 1.03 02/06/18 16:26: WBC 8.8, Hgb 13.3 L, Hct 40.0, Plt Count 185 02/06/18 16:26: Sodium 140, Potassium 4.8, BUN 42 H, Creatinine 2.40 H, Glucose 242 H, Magnesium 1.9, Total Bilirubin 0.3, AST 38 H, ALT 45, Alkaline Phosphatase 65, Lipase 358 Imagings Data: EXAM DESCRIPTION: US - Renal Ultrasound-Complete - 02/06/2018 7:04 pm CLINICAL HISTORY: Acute renal failure COMPARISON: RP EXAM COMPLETE dated 04/29/2012; [facility] Protocol dated 02/06/2018 FINDINGS: Both kidneys are normal in size, shape and echotexture. The right kidney measures 11.0 x 5.2 x 4.9 cm. No hydronephrosis, focal mass or perinephric fluid. The left kidney measures 11.0 x 5.6 x 5.3 cm. No hydronephrosis, focal mass or perinephric fluid. The urinary bladder is incompletely distended without gross abnormality seen. IMPRESSION: Unremarkable renal sonogram. EXAM DESCRIPTION: CT - Stone Protocol - 02/06/2018 6:50 pm CLINICAL HISTORY: Flank pain. PAIN COMPARISON: No comparisons TECHNIQUE: Axial images were obtained without oral or IV contrast. Lack of contrast limits solid organ and vascular assessment. The [id number] spans the entirety of the system partially obscuring uppermost abdomen and lung bases. Coronal reformatted images were obtained and reviewed. All CT scans are performed using dose optimization technique as appropriate and may include automated exposure control or mA/KV adjustment according to patient size. FINDINGS: The lower lung cervantes are clear. Imaged portions of the liver and spleen show no suspicious findings on non- contrast imaging.Cholelithiasis. The pancreas and adrenal glands are normal. No pathologic lymphadenopathy in the abdomen or pelvis. No urinary tract stones or obstructive uropathy. No bowel obstruction, free air, free fluid or abscess. The appendix is not identified as a discrete structure, however, no secondary findings of appendicitis are identified. Moderate lower lumbar degenerative changes. Bilateral fat containing inguinal hernias. IMPRESSION: No urinary tract stones or obstructive uropathy. Cholelithiasis. Conclusions/Impression: A/ TA improving with gentle IVF. CKD III. HTN with CKD. Edema. DM II with CKD. A1C 8.5 AMI/ CAD. P/ Continue current POC and Medications. Gentle IVF. Follow up with cardiology. Possible cardiac catheterization soon. No NSAIDs. AM labs. Daily weight.
[2018-02-09 05:29] LABS: Absolute Lymphocytes (CBC) 1.5 K/uL (0.7-4.9); Absolute Monocytes 0.6 K/uL (0.1-1.3); Absolute Neutrophil 5.1 K/uL (1.8-8.0); Eosinophils % 7.3 % (0-4.4); Hematocrit 39.8 % (39.6-49.0); Lymphocytes % 18.9 % (15.3-44.8); MCH 29.1 pg (27.0-35.0); MCV 83.5 fL (80-100); MPV 9.6 fL (7.6-11.3); Monocytes % 7.1 % (3.3-12.3); RBC Red Blood Cell Count 4.76 M/uL (4.33-5.43)
[2018-02-09] MEDS: LEVOTHYROXINE SOD 0.1 MG TAB PO SCH (05:41)
[2018-02-09] MEDS: NACHLORIDE 0.45% 1,000 ML IV SCH ×2 (05:42→13:00)
[2018-02-09 05:45] LABS: Magnesium 1.9 mg/dL (1.8-2.4)
[2018-02-09] MEDS: INSULIN -REGULAR HUMAN 50 UNIT/0.5 ML ML SQ SCH ×2 (07:30→12:20)
[2018-02-09] MEDS: ASPIRIN EC 81 MG TAB PO SCH (08:36)
[2018-02-09] MEDS: INSULIN GLARGINE 100 UNITS/ML SQ SCH (08:48)
[2018-02-09] MEDS ORDERED: METOPROLOL TAR 50 MG TAB PO SCH ×2 (09:00)
[2018-02-09 09:15] VITALS: O2SAT 94
--- NOTE | 2018-02-09 12:18 | P.DS ---
Admission Date: 02/06/18 Discharge Date: 02/09/18 Primary Care Provider: None([place]); Cardiology-Dr. Recinos Disposition: ROUTINE DISCHARGE Discharge Condition: GOOD Reason for Admission: Chest pain, abnormal EKG Consultations: Cardiology-Dr. Barrios/Dr. Recinos Nephrology-Dr. Quintero Procedures: Renal US: COMPARISON: RP EXAM COMPLETE dated 04/29/2012; Stone Protocol dated 02/06/2018 FINDINGS: Both kidneys are normal in size, shape and echotexture. The right kidney measures 11.0 x 5.2 x 4.9 cm. No hydronephrosis, focal mass or perinephric fluid. The left kidney measures 11.0 x 5.6 x 5.3 cm. No hydronephrosis, focal mass or perinephric fluid. The urinary bladder is incompletely distended without gross abnormality seen. IMPRESSION: Unremarkable renal sonogram. CT scan: COMPARISON: No comparisons TECHNIQUE: Axial images were obtained without oral or IV contrast. Lack of contrast limits solid organ and vascular assessment. The [id number] spans the entirety of the system partially obscuring uppermost abdomen and lung bases. Coronal reformatted images were obtained and reviewed. All CT scans are performed using dose optimization technique as appropriate and may include automated exposure control or mA/KV adjustment according to patient size. FINDINGS: The lower lung cervantes are clear. Imaged portions of the liver and spleen show no suspicious findings on non- contrast imaging.Cholelithiasis. The pancreas and adrenal glands are normal. No pathologic lymphadenopathy in the abdomen or pelvis. No urinary tract stones or obstructive uropathy. No bowel obstruction, free air, free fluid or abscess. The appendix is not identified as a discrete structure, however, no secondary findings of appendicitis are identified. Moderate lower lumbar degenerative changes. Bilateral fat containing inguinal hernias. IMPRESSION: No urinary tract stones or obstructive uropathy. Cholelithiasis. ECHO: EF-59% DOPPLER/COLOR FLOW: MILD MITRAL AND TRICUSPID REGURGITATION. NORMAL RIGHT VENTRICULAR SYSTOLIC PRESSURE. COMMENTS: NORMAL LEFT VENTRICULAR EJECTION FRACTION. LEFT VENTRICULAR HYPERTROPHY. MILD MITRAL AND TRICUSPID REGURGITATION. Medical problem list: Chest pain with abnormal EKG showing consecutive PVCs now with elevated troponin secondary to Acute Coronary Syndrome Acute renal failure likely related to medication-diuretic/Arb inhibitor CAD with history of stent Hypertension Diabetes mellitus type 2, uncontrolled, A1c-8.5 Hypothyroidism Hyperlipidemia Obesity, BMI 35.6 Suspect obstructive sleep apnea Asymptomatic cholelithiasis Brief History of Present Illness: 62-year-old male presented to the ER with chest pain and abnormal EKG. Patient was seen by Cardiology today. Patient was having chest pain to the substernal region. This has been occurring more often. Patient was found to have abnormal EKG with consecutive PVCs. Patient was sent for dimension for heart catheterization. Patient reported some mild shortness of breath. Patient denied any nausea, vomiting or palpitations. Patient with history of diabetes insulin-dependent, hypertension, hyperlipidemia, CAD with previous stent. Patient evaluated in emergency room. Troponin elevated at 3.19. EKG showed consecutive PVCs. White count 8.8, hemoglobin 13.3. BUN of 42, creatinine 2.4 with a GFR of 28. Glucose 242. When I saw the patient in the ER, he appeared stable. No significant chest pain noted. Patient reports somewhat dehydrated. Patient is taking multiple medications including diuretic therapy. Hospital Course: Patient presented with chest pain with abnormal EKG showing consecutive PVCs. Patient also found to have elevated troponin due to Acute Coronary Syndrome. Patient was evaluated by cardiology. Patient has history of CAD with prior stent. Echocardiogram showed normal ejection fraction. Patient was to have heart catheterization but due to his poor renal function this could not be done. The patient was monitored for several days. Case discussed at length with cardiology. Cardiology plans for outpatient heart catheterization next week after recheck of renal function. If creatinine less than 1.5 then heart catheterization can proceed. Patient will also need to see electrophysiology as an outpatient for possible ablation therapy. At discharge he will continue with aspirin 81 mg daily. Patient will continue with nitroglycerin as needed for chest pain. Recommendation to follow up with cardiology next week to set up heart catheterization and follow up lab-BMP. Patient had acute renal failure secondary to medication-diuretic therapy and Arb inhibitor. During his stay, Dyazide and Telmisartan was discontinued. Renal ultrasound shows no chronic renal disease was consulted. At discharge creatinine 1.8. Patient seen by Nephrology. Recommendations for the patient follow up with nephrology in 1-2 weeks to monitor his progress. Recommendation to recheck lab-BMP next week in preparation for possible heart catheterization if creatinine less than 1.5. Recommendation on no further use of nonsteroidal anti-inflammatories. Future medications will need to be renally dosed. Patient has hypertension. Medications have been adjusted due to his renal function. Dyazide and telmisartan has been discontinued. At discharge patient will continue with metoprolol 50 mg 1 pill twice daily. Recommendation is to maintain blood pressures less 150/80. Further adjustment can be done by cardiology or his PCP. Patient has diabetes mellitus type 2, insulin dependent. A1c 8.5. At discharge he will continue with Lantus 45 units subcu daily. I will recommend to discontinue glipizide due to risk of hypoglycemia. Recommendation is to maintain blood sugars less 140 fasting and less than 200 after meals. Further adjustment can be done by his PCP. Patient has hypothyroidism. At discharge patient will continue with Levoxyl 100 mcg daily. Patient has hyperlipidemia. Patient will continue with Lipitor 80 mg daily. Patient with obesity. BMI 35. Lifestyle modification education addressed in detail. Patient likely has underlying sleep apnea. Recommendations for the patient to follow up with pulmonology as an outpatient for sleep study to further address. Patient has asymptomatic cholelithiasis. This could be monitored as an outpatient. Patient may require future cholecystectomy in the future. Education will be provided. Vital Signs/Physical Exam: Temp Pulse Resp BP Pulse Ox 97.3 F 55 18 135/84 96 02/09/18 08:00 02/09/18 08:37 02/09/18 08:00 02/09/18 08:00 02/09/18 08:00 General: Alert, In no apparent distress, Oriented x3, Cooperative HEENT: Atraumatic, Normocephalic, Mucous membr. moist/pink Neck: Supple Respiratory: Clear to auscultation bilaterally, Normal air movement Cardiovascular: Normal pulses, Regular rate/rhythm Gastrointestinal: Normal bowel sounds, Soft and benign, Non-distended, No tenderness, No masses, No rebound, No guarding Musculoskeletal: No contractures, No erythema, No tenderness, No warmth Integumentary: No tenderness/swelling, No erythema, No warmth, No cyanosis Neurological: Normal speech, Normal strength at 5/5 x4 extr, Normal tone, Normal affect Lymphatics: No axilla or inguinal lymphadenopathy Laboratory Data at Discharge: WBC 7.8 K/uL (4.3-10.9) 02/09/18 05:02 Hgb 13.9 g/dL (13.6-17.9) 02/09/18 05:02 Hct 39.8 % (39.6-49.0) 02/09/18 05:02 Plt Count 172 K/uL (152-406) 02/09/18 05:02 PT 12.1 SECONDS (9.5-12.5) 02/06/18 16:26 INR 1.03 02/06/18 16:26 APTT 56.1 SECONDS (24.3-36.9) H 02/09/18 05:02 Sodium 139 mmol/L (136-145) 02/09/18 05:02 Potassium 4.0 mmol/L (3.5-5.1) 02/09/18 05:02 BUN 32 mg/dL (7-18) H 02/09/18 05:02 Creatinine 1.80 mg/dL (0.55-1.3) H 02/09/18 05:02 Glucose 168 mg/dL (74-106) H 02/09/18 05:02 Uric Acid 7.4 mg/dL (3.5-7.2) H 02/07/18 04:41 Phosphorus 3.8 mg/dL (2.5-4.9) 02/07/18 04:41 Magnesium 1.9 mg/dL (1.8-2.4) 02/09/18 05:02 Total Bilirubin 0.3 mg/dL (0.2-1.0) 02/06/18 16:26 AST 38 U/L (15-37) H 02/06/18 16:26 ALT 45 U/L (12-78) 02/06/18 16:26 Alkaline Phosphatase 65 U/L (45-117) 02/06/18 16:26 Troponin I 2.91 ng/mL (0.0-0.045) H* 02/07/18 04:41 Triglycerides 179 mg/dL (<150) H 02/07/18 04:41 Cholesterol 165 mg/dL (<200) 02/07/18 04:41 HDL Cholesterol 39 mg/dL (40-60) L 02/07/18 04:41 Cholesterol/HDL Ratio 4.23 02/07/18 04:41 Lipase 358 U/L (73-393) 02/06/18 16:26 Home Medications: Aspirin 81 mg PO DAILY 04/29/12 Glipizide [Glucotrol] 5 mg PO DAILY #30 tablet 04/30/12 Levothyroxine Sodium [Synthroid] 100 mcg PO DAILY #30 tablet 04/30/12 Glipizide [Glucotrol] 5 mg PO DAILY 02/06/18 Insulin Glargine,Hum.rec.anlog [Lantus] 45 unit SQ BEDTIME 02/06/18 Atorvastatin Calcium [Lipitor] 80 mg PO BEDTIME #30 tab 02/09/18 Metoprolol Tartrate [Lopressor*] 50 mg PO BID #60 tab 02/09/18 Nitroglycerin [Nitrostat*] 0.4 mg SL SEECOM PRN #30 tab 02/09/18 New Medications: Atorvastatin Calcium [Lipitor] 80 mg PO BEDTIME #30 tab Metoprolol Tartrate [Lopressor*] 50 mg PO BID #60 tab Nitroglycerin [Nitrostat*] 0.4 mg SL SEECOM PRN #30 tab PRN Reason: Chest Pain Patient Discharge Instructions: 1. Patient will need to establish care with a PCP to continue his care. 2. Patient presented with chest pain with abnormal EKG showing consecutive PVCs. Patient also found to have elevated troponin due to Acute Coronary Syndrome. Patient was evaluated by cardiology. Patient has history of CAD with prior stent. Echocardiogram showed normal ejection fraction. Patient was to have heart catheterization but due to his poor renal function this could not be done. The patient was monitored for several days. Case discussed at length with cardiology. Cardiology plans for outpatient heart catheterization next week after recheck of renal function. If creatinine less than 1.5 then heart catheterization can proceed. Patient will also need to see electrophysiology as an outpatient for possible ablation therapy. At discharge he will continue with aspirin 81 mg daily. Patient will continue with nitroglycerin as needed for chest pain. Recommendation to follow up with cardiology next week to set up heart catheterization and follow up lab-BMP. 3. Patient had acute renal failure secondary to medication-diuretic therapy and Arb inhibitor. During his stay, Dyazide and Telmisartan was discontinued. Renal ultrasound shows no chronic renal disease was consulted. At discharge creatinine 1.8. Patient seen by Nephrology. Recommendations for the patient follow up with nephrology in 1-2 weeks to monitor his progress. Recommendation to recheck lab-BMP next week in preparation for possible heart catheterization if creatinine less than 1.5. Recommendation on no further use of nonsteroidal anti-inflammatories. Future medications will need to be renally dosed. 4. Patient has hypertension. Medications have been adjusted due to his renal function. Dyazide and telmisartan has been discontinued. At discharge patient will continue with metoprolol 50 mg 1 pill twice daily. Recommendation is to maintain blood pressures less 150/80. Further adjustment can be done by cardiology or his PCP. 5. Patient has diabetes mellitus type 2, insulin dependent. A1c 8.5. At discharge he will continue with Lantus 45 units subcu daily. I will recommend to discontinue glipizide due to risk of hypoglycemia. Recommendation is to maintain blood sugars less 140 fasting and less than 200 after meals. Further adjustment can be done by his PCP. 6. Patient has hypothyroidism. At discharge patient will continue with Levoxyl 100 mcg daily. 7. Patient has hyperlipidemia. Patient will continue with Lipitor 80 mg daily. 8. Patient with obesity. BMI 35. Lifestyle modification education addressed in detail. 9. Patient likely has underlying sleep apnea. Recommendations for the patient to follow up with pulmonology as an outpatient for sleep study to further address. 10. Patient found to have asymptomatic cholelithiasis. Education on cholelithiasis will provided. Recommendation to follow up with surgery as an outpatient. Diet: ADA Activity: Ad ahmet Time spent managing pt's care (in minutes): 55
[2018-02-09 14:21] VITALS: BP 132/81; TEMP 97.7
[2018-02-09] MEDS ORDERED: INFLUENZA VACCINE (for 3y+) 0.5 ML DOSE IMVAC ONE (15:00)
[2018-02-09] MEDS ORDERED: PNEUMOCOCCAL VACCINE 0.5 ML IMVAC ONE (15:00)
--- NOTE | 2018-02-09 22:41 | P.PN ---
Date of Service: 02/09/18 Vital Signs Temp Pulse Resp BP Pulse Ox 97.7 F 63 18 132/81 94 02/09/18 12:00 02/09/18 12:00 02/09/18 12:00 02/09/18 12:00 02/09/18 12:00 Assessment/ Plan: Nephrology. Feeling better. CPS stable without CP or SOB. No acute events overnight. Vitals, medications, blood work and imaging reviewed in the chart. General: In no apparent distress, Oriented x3, Cooperative HEENT: Mucous membr. moist/pink Neck: Supple Respiratory: Clear to auscultation bilaterally, Normal air movement Cardiovascular: Regular rate/rhythm, No Edema Gastrointestinal: Soft and benign, Non-distended Musculoskeletal: No clubbing, No contractures Integumentary: No rashes, No cyanosis Neurological: Normal speech Laboratory Data (last 24 hrs) 02/06/18 16:26: PT 12.1, INR 1.03 02/06/18 16:26: WBC 8.8, Hgb 13.3 L, Hct 40.0, Plt Count 185 02/06/18 16:26: Sodium 140, Potassium 4.8, BUN 42 H, Creatinine 2.40 H, Glucose 242 H, Magnesium 1.9, Total Bilirubin 0.3, AST 38 H, ALT 45, Alkaline Phosphatase 65, Lipase 358 Imagings Data: EXAM DESCRIPTION: US - Renal Ultrasound-Complete - 02/06/2018 7:04 pm CLINICAL HISTORY: Acute renal failure COMPARISON: RP EXAM COMPLETE dated 04/29/2012; Stone Protocol dated 02/06/2018 FINDINGS: Both kidneys are normal in size, shape and echotexture. The right kidney measures 11.0 x 5.2 x 4.9 cm. No hydronephrosis, focal mass or perinephric fluid. The left kidney measures 11.0 x 5.6 x 5.3 cm. No hydronephrosis, focal mass or perinephric fluid. The urinary bladder is incompletely distended without gross abnormality seen. IMPRESSION: Unremarkable renal sonogram. EXAM DESCRIPTION: CT - Stone Protocol - 02/06/2018 6:50 pm CLINICAL HISTORY: Flank pain. PAIN COMPARISON: No comparisons TECHNIQUE: Axial images were obtained without oral or IV contrast. Lack of contrast limits solid organ and vascular assessment. The [id number] spans the entirety of the system partially obscuring uppermost abdomen and lung bases. Coronal reformatted images were obtained and reviewed. All CT scans are performed using dose optimization technique as appropriate and may include automated exposure control or mA/KV adjustment according to patient size. FINDINGS: The lower lung cervantes are clear. Imaged portions of the liver and spleen show no suspicious findings on non- contrast imaging.Cholelithiasis. The pancreas and adrenal glands are normal. No pathologic lymphadenopathy in the abdomen or pelvis. No urinary tract stones or obstructive uropathy. No bowel obstruction, free air, free fluid or abscess. The appendix is not identified as a discrete structure, however, no secondary findings of appendicitis are identified. Moderate lower lumbar degenerative changes. Bilateral fat containing inguinal hernias. IMPRESSION: No urinary tract stones or obstructive uropathy. Cholelithiasis. Conclusions/Impression: A/ TA improving with gentle IVF. CKD III. HTN with CKD. Edema. DM II with CKD. A1C 8.5 AMI/ CAD. P/ Continue current POC and Medications. Follow up with cardiology. Cardiac catheterization as an outpt. No NSAIDs. Counseled regarding hydration and NSAIDs. AM labs. Daily weight. Case discussed with Dr. Rojas
--- NOTE | 2018-02-10 11:03 | PN ---
Date of Progress Note: 02/09/2018 Subjective: Mr. Al has been in the hospital for a few days. He had came in with renal failure, creatinine of 2.4; short runs of ventricular tachycardia; and chest pain. His chest pain has resolv ed. He is still have occasional PVCs. His creatinine is 1.8, but high risk for angiography, but he does need it considering his history in the past. He is feeling comfortable. We will plan to send h im home on beta-blockers and calcium channel blockers. No TIAGO inhibitors. No diuretics. No ARBs. I will plan to get a BMP sometime next week and see what his creatinine is and plan an outpatient cat heterization. We may also have to get a 24- to 48-hour Holter down the road to see if he is having a ny more VT. If he does have any more ventricular tachycardia, we should consider EP referral after t he catheterization. The case was discussed with Dr. Rojas. JOSEPH/ALEXANDRA Voice ID: [id number] Report ID: [id number]
== END 2018-02-09 16:58 | disposition home or self-care (01) | DRG 311 ==
LOC: ER 16:15 → ERHOLD 17:24 → 3RD-ICU 19:36 → 4TH 02-08 13:04
PROVIDERS: ADMIT Family Medicine; ATTEND Family Medicine
DX: I24.9 Acute ischemic heart disease, unspecified (principal); N17.9 Acute kidney failure, unspecified; T46.5X5A Adverse effect of other antihypertensive drugs, initial encounter; T50.2X5A Adverse effect of carbonic-anhydrase inhibitors, benzothiadiazides and other diuretics, initial encounter; Y92.019 Unspecified place in single-family (private) house as the place of occurrence of the external cause; I25.10 Atherosclerotic heart disease of native coronary artery without angina pectoris; Z95.5 Presence of coronary angioplasty implant and graft; E11.65 Type 2 diabetes mellitus with hyperglycemia; E03.9 Hypothyroidism, unspecified; E78.5 Hyperlipidemia, unspecified; G47.33 Obstructive sleep apnea (adult) (pediatric); K80.20 Calculus of gallbladder without cholecystitis without obstruction; E66.9 Obesity, unspecified; Z68.35 Body mass index [BMI] 35.0-35.9, adult; I12.9 Hypertensive chronic kidney disease with stage 1 through stage 4 chronic kidney disease, or unspecified chronic kidney disease; E11.22 Type 2 diabetes mellitus with diabetic chronic kidney disease; N18.3 Chronic kidney disease, stage 3 (moderate)
CPT/HCPCS: 36415; 71045; 74176; 76377; 76770; 80048; 80061; 80076; 81001; 81003; 82043; 82550; 82553; 82570; 82962; 83036; 83690; 83735; 83880; 84100; 84439; 84443; 84484; 84550; 85025; 85610; 85730; 90670; 93005; 93306; 99291; C9113; G0008; G0009; J1644; J3475; J7030; Q2035